=== PATIENT | female | born 1985 | race Caucasian/White ===

== ENCOUNTER 2017-02-18 06:46 | Inpatient (IN) | payer OTHER ==
[~2017-02-18] VITALS: Ht 160 cm; Wt 65.8 kg
--- NOTE | 2017-02-18 07:05 | NUR ---
TO BED 6 A 31 YO FEMALE PT C/O HEAVY VAGINAL BLEEDING AND PT STATES SHE IS PASSING CLOTS X 4 HOURS. AAOX4, NAD NOTED, VSS, NONDIAPHORETIC, AMBULATORY. GOWNED. COMFORT MEASURES RENDERED.
--- NOTE | 2017-02-18 07:10 | NUR ---
STARTED A SALINE LOCK ON THE RWRIST G20.
[2017-02-18] MEDS ORDERED: ONDANSETRON HCL/PF 4 MG/2 ML VIAL ONE ×2 (07:27→11:32)
[2017-02-18] MEDS ORDERED: MORPHINE SULFATE INJ 2 MG/ML DISP.SYRIN ONE ×2 (07:27→11:32)
[2017-02-18] MEDS ORDERED: ONDANSETRON HCL/PF 4 MG/2 ML VIAL IVP ONE (07:30)
[2017-02-18] MEDS ORDERED: MORPHINE SULFATE INJ 2 MG/ML DISP.SYRIN IV ONE ×2 (07:30→11:30)
[2017-02-18] MEDS ORDERED: IV NS 0.9% 1,000 ML BAG IV ONE ×2 (07:30→10:30)
[2017-02-18 07:47] LABS: BASOPHILS % (AUTO) 0.8 % (0.0-2.0); EOSINOPHILS # (AUTO) 0.1 /CMM (0.0-0.7); HEMATOCRIT 32 % (33-45); HEMOGLOBIN 10.8 g/dL (11.5-14.8); MEAN CORPUSCULAR HEMOGLOBIN 27 PG (26.0-33.0); MEAN CORPUSCULAR HGB CONC 34 g/dl (31.0-36.0); MEAN CORPUSCULAR VOLUME 80 fL (82-100); MONOCYTES # (AUTO) 0.4 /CMM (0.1-1.30); NEUTROPHILS # (AUTO) 3.4 /CMM (1.8-8.9); NEUTROPHILS % (AUTO) 57.2 % (43.0-81.0); PLATELET COUNT (AUTO) 258 /CMM (150-450); RDW COEFFICIENT OF VARIATION 13.5 (11.5-15.0); RED BLOOD CELL COUNT(AUTO) 4.05 MIL/uL (4.0-5.2)
--- NOTE | 2017-02-18 07:47 | NUR ---
MEDICATED PATIENT PER MD ORDERS.
[2017-02-18 07:58] LABS: CALCIUM, SERUM 8.4 mg/dL (8.5-10.1); CREATININE 0.6 mg/dL (0.6-1.3); POTASSIUM 4.3 mmol/L (3.5-5.1)
--- NOTE | 2017-02-18 08:00 | NUR ---
AT BEDSIDE FOR EVAL.
[2017-02-18 08:05] LABS: INR 0.91 (0.87-1.13); PROTHROMBIN TIME 9.5 SECS (9.5-12.7)
[2017-02-18 08:12] LABS: ALBUMIN 3.5 g/dL (3.4-5.0); BILIRUBIN,DIRECT 0.1 mg/dL (0.0-0.2); BILIRUBIN,TOTAL 0.5 mg/dL (0.2-1.0); TOTAL PROTEIN, SERUM 6.8 g/dL (6.4-8.2)
[2017-02-18 09:43] LABS: APPEARANCE,URINE Slightly Cloudy (CLEAR); BILIRUBIN,URINE SMALL (NEGATIVE); BLOOD, URINE Large Ery/uL (NEGATIVE); COLOR,URINE Red (YELLOW); KETONES,URINE Negative (NEGATIVE); LEUKOCYTE ESTERASE ,URINE Negative (NEGATIVE); NITRITE, URINE Negative (NEGATIVE); PH,URINE 5.5 (5.0-8.0); PROTEIN,URINE >=300 mg/dl (NEGATIVE); UGLUCOSE Negative (NEGATIVE); UROBILINOGEN,URINE 0.2 EU/dL (0.2)
[2017-02-18 09:44] LABS: BACTERIA,URINE Few /HPF (None Seen); RBC,URINE TOO NUMEROUS TO COUN /HPF (0-2); SQUAMOUS EPITHELIAL CELL,UR Few /HPF (None Seen)
--- NOTE | 2017-02-18 11:05 | NUR ---
ZIPPER CUTTER AT BEDSIDE FOR BLOOD DRAW.
[2017-02-18 11:12] LABS: HEMOGLOBIN 9.4 g/dL (11.5-14.8)
[2017-02-18] MEDS ORDERED: ONDANSETRON HCL/PF - ER 4 MG/2 ML VIAL IV ONE (11:30)
--- NOTE | 2017-02-18 11:31 | NUR ---
PAGED DR DEANGELO LIMON PATIENT'S OBGYN
--- NOTE | 2017-02-18 11:39 | NUR ---
PAGED DR. AGUILA FOR CONSULT
[2017-02-18] MEDS ORDERED: MEDR10TA10 PO (11:53)
--- NOTE | 2017-02-18 12:35 | NUR ---
OBDR. SLATER AT BEDSIDE.
[2017-02-18] MEDS ORDERED: MEGESTROL ACETATE 40 MG TABLET PO SCH (13:00)
[2017-02-18] MEDS ORDERED: MEGESTROL ACETATE 40 MG TABLET PO ONE (13:00)
--- NOTE | 2017-02-18 14:25 | NUR ---
DR. BURRIS ACCEPTED PATIENT AT [facility]
--- NOTE | 2017-02-18 15:08 | NUR ---
REPORT GIVEN TO ARTEM WINKLER FOR CONTINUITY OF CARE AT [facility]
[2017-02-18 15:14] VITALS: BP 128/86
--- NOTE | 2017-02-18 15:20 | NUR ---
PATIENT TRANSFERRED TO [facility] VIA AMBULANCE. REPORT GIVEN TO EMT AT BEDSIDE. PATIENT LEFT IN STABLE CONDITION.
== END 2017-02-18 19:00 | disposition short-term general hospital (02) | DRG 760 ==
LOC: ER 06:50 → MED 13:16
PROVIDERS: ADMIT Internal Medicine; ATTEND Internal Medicine
DX: N93.8 Other specified abnormal uterine and vaginal bleeding (principal); D62 Acute posthemorrhagic anemia; N83.201 Unspecified ovarian cyst, right side
CPT/HCPCS: 36415; 76856-TC; 80048-TC; 80076-TC; 81000-TC; 84702-TC; 85025-TC; 85027-TC; 85730-TC; 86850-TC; 86921-TC; 87086-TC; A4606; A6253; C1769; J2270; J2405; J7030; Z7610